=== PATIENT | male | born 1985 | race Caucasian/White ===

== ENCOUNTER 2021-04-13 12:20 | Emergency (ER) | payer SELFPAY ==
[~2021-04-13 12:20] MED LIST: Iopamidol 370 76% 100 ML VIAL ONE
[2021-04-13] MEDS ORDERED: Acetaminophen 500 MG TAB ONE (12:42)
[2021-04-13] MEDS ORDERED: Sodium Chloride 0.9% 1,000 ML ONE ×2 (12:42→13:48)
[2021-04-13] MEDS ORDERED: Ondansetron PF 4 MG/2 ML Vial ONE ×2 (12:42→14:56)
[2021-04-13 13:02] LABS: Hemoglobin 16.6 g/dL (14.0-18.0); Mean Corpuscular HGB CONC 34.4 g/dL (32.0-36.0); Mean Corpuscular Hemoglobin 29.3 pg (27.0-31.0); Mean Corpuscular Volume 85.2 fL (78.0-98.0); Mean Platelet Volume 8.5 fL (7.4-10.4); Platelet Count 150 thou/uL (130-400); Red Blood Cell (RBC) Count 5.66 mill/uL (4.70-6.10); White Blood Cell (WBC) Count 10.9 thou/uL (4.8-10.8)
[2021-04-13 13:11] LABS: ALT (SGPT) 19 U/L (8-55); AST (SGOT) 15 U/L (5-34); Alkaline Phosphatase 56 U/L (40-110); Anion Gap 16 mmol/L (10-20); BUN (Urea Nitrogen) 22 mg/dL (8.9-20.6); Bilirubin, Total 2.5 mg/dL (0.2-1.2); Calc. Creatinine Clearance 0 mL/min (70-130); Calcium 8.7 mg/dL (7.8-10.44); Carbon Dioxide 20 mmol/L (22-29); Chloride 95 mmol/L (98-107); Globulin 3.4 g/dL (2.4-3.5); Glucose 354 mg/dL (70-105); Lipase 5 U/L (8-78); Potassium 3.4 mmol/L (3.5-5.1); Protein, Total 7.4 g/dL (6.0-8.3); Sodium 128 mmol/L (136-145)
[2021-04-13 13:36] LABS: Band 18 % (5-11); Lymphocytes 15 % (21-51); MDiff Complete? YES; Monocytes 9 % (0-10); Neutrophil 58 % (42-75); RBC Morphology Normal
[2021-04-13] MEDS ORDERED: Piperacillin/Tazobactam 4.5 GM VIAL ONE (14:56)
[2021-04-13] MEDS ORDERED: Morphine 4 MG/ML VIAL ONE (14:56)
[2021-04-13] MEDS ORDERED: Sodium Chloride 0.9% 500 ML ONE (14:56)
[2021-04-13 16:21] LABS: SARS-CoV-2 NAA Rapid Test Not Detected (NotDetected)
== END 2021-04-13 16:50 | disposition short-term general hospital (02) ==
LOC: NAV ERS 12:20
DX: K51.00 Ulcerative (chronic) pancolitis without complications (principal); E11.65 Type 2 diabetes mellitus with hyperglycemia; E86.9 Volume depletion, unspecified; Z20.822 Contact with and (suspected) exposure to COVID-19; F17.210 Nicotine dependence, cigarettes, uncomplicated
CPT/HCPCS: 36416; 74177; 80053; 83605; 83690; 85025; 87040; 96365; 96367; 96375; 96376; 36415-59; J2270; J2405; J2543; J3370; J7030; J7050; Q9967; U0002

== ENCOUNTER 2021-10-19 20:30 | Emergency (ER) | payer SELFPAY ==
[2021-10-19 20:52] LABS: #Basophils 0.1 thou/uL (0.0-0.2); #Eosinphils 0.2 thou/uL (0.0-0.7); #Lymphocytes 2.7 thou/uL (1.20-3.40); #Monocytes 0.6 thou/uL (0.11-0.59); #Neutrophils 4.8 thou/uL (1.40-6.50); %Basophils 1.6 % (0.0-1.0); %Eosinophils 2.2 % (0.0-10.0); %Lymphocytes 31.9 % (21.0-51.0); %Monocytes 7.1 % (0.0-10.0); %Neutrophils 57.2 % (42.0-75.0); Hemoglobin 15.4 g/dL (14.0-18.0); Mean Corpuscular HGB CONC 32.7 g/dL (32.0-36.0); Mean Corpuscular Hemoglobin 28.5 pg (27.0-31.0); Mean Corpuscular Volume 87.2 fL (78.0-98.0); Platelet Count 198 thou/uL (130-400); RBC Distribution Width 11.9 % (11.5-14.5); White Blood Cell (WBC) Count 8.3 thou/uL (4.8-10.8)
[2021-10-19 20:58] LABS: Bilirubin Negative (Negative); Blood, Urine Trace (Negative); Clarity Clear (Clear); Glucose, Urine (Dipstick) >=1000 mg/dL (Negative); Ketone, Urine Negative (Negative); Leukocyte Negative (Negative); Nitrite Negative (Negative); Protein, Urine (Dipstick) Negative (Neg-Trace); Urobilinogen 0.2 mg/dL (Less than 2); pH, Urine 5.5 (5.0-9.0)
[2021-10-19 21:05] LABS: RBC/HPF 0-3 HPF (0-3); WBC/HPF None Seen HPF (0-3)
[2021-10-19 21:06] LABS: Squamous Epithelial 0-3 HPF (0-3)
[2021-10-19 21:10] LABS: ALT (SGPT) 28 U/L (8-55); AST (SGOT) 20 U/L (5-34); Albumin 4.4 g/dL (3.5-5.0); Alkaline Phosphatase 108 U/L (40-110); Anion Gap 20 mmol/L (10-20); BUN (Urea Nitrogen) 13 mg/dL (8.9-20.6); Bilirubin, Total 0.9 mg/dL (0.2-1.2); Calc. Creatinine Clearance 0 mL/min (70-130); Calcium 9.6 mg/dL (7.8-10.44); Carbon Dioxide 21 mmol/L (22-29); Chloride 98 mmol/L (98-107); Globulin 3.5 g/dL (2.4-3.5); Glucose 428 mg/dL (70-105); Potassium 3.9 mmol/L (3.5-5.1); Protein, Total 7.9 g/dL (6.0-8.3); Sodium 135 mmol/L (136-145)
[2021-10-19] MEDS ORDERED: Insulin Regular 300 UNITS/3 ML VIAL ONE (21:17)
[2021-10-19] MEDS ORDERED: Ondansetron PF 4 MG/2 ML Vial ONE (21:24)
[2021-10-19] MEDS ORDERED: Morphine 4 MG/ML VIAL ONE (21:24)
[2021-10-19] MEDS ORDERED: Sodium Chloride 0.9% 1,000 ML ONE (21:51)
== END 2021-10-19 22:44 | disposition left against medical advice (07) ==
LOC: NAV ERS 20:30
DX: K85.90 Acute pancreatitis without necrosis or infection, unspecified (principal); E11.65 Type 2 diabetes mellitus with hyperglycemia; F17.210 Nicotine dependence, cigarettes, uncomplicated
CPT/HCPCS: 36416; 74177; 80053; 81003; 81015; 83690; 85025; 94760; 96374; 96375; J1815; J2270; J2405; J7050; Q9967

== ENCOUNTER 2022-03-19 12:48 | Emergency (ER) | payer SELFPAY | END 2022-03-19 13:27 | disposition home or self-care (01) | LOC: NAV ERS 12:48 | DX: L73.1 Pseudofolliculitis barbae (principal); L08.9 Local infection of the skin and subcutaneous tissue, unspecified; E11.9 Type 2 diabetes mellitus without complications; F17.210 Nicotine dependence, cigarettes, uncomplicated; Z79.84 Long term (current) use of oral hypoglycemic drugs; Z79.899 Other long term (current) drug therapy | CPT/HCPCS: 87070; 87077; 87205; 99283 ==

== ENCOUNTER 2024-03-19 19:34 | Emergency (ER) | payer OTHER ==
[2024-03-19] MEDS ORDERED: Ondansetron PF 4 MG/2 ML Vial ONE (19:54)
[2024-03-19] MEDS ORDERED: Sodium Chloride 0.9% 1,000 ML ONE (19:54)
[2024-03-19 20:27] LABS: #Basophils 0.1 thou/uL (0.0-0.2); #Eosinphils 0.2 thou/uL (0.0-0.7); #Lymphocytes 2.4 thou/uL (1.20-3.40); #Monocytes 0.6 thou/uL (0.11-0.59); #Neutrophils 4.2 thou/uL (1.40-6.50); %Basophils 1.9 % (0.0-1.0); %Eosinophils 2.9 % (0.0-10.0); %Lymphocytes 31.3 % (21.0-51.0); %Monocytes 8.4 % (0.0-10.0); %Neutrophils 55.5 % (42.0-75.0); Hemoglobin 15.1 g/dL (14.0-18.0); Mean Corpuscular HGB CONC 34.3 g/dL (32.0-36.0); Mean Corpuscular Hemoglobin 28.8 pg (27.0-31.0); Mean Platelet Volume 8.6 fL (7.4-10.4); Platelet Count 187 10x3/uL (130-400); RBC Distribution Width 11.6 % (11.5-14.5); Red Blood Cell (RBC) Count 5.24 mill/uL (4.70-6.10); White Blood Cell (WBC) Count 7.6 10x3/uL (4.8-10.8)
[2024-03-19 20:42] LABS: ALT (SGPT) 33 U/L (8-55); AST (SGOT) 21 U/L (5-34); Albumin 4.4 g/dL (3.5-5.0); Alkaline Phosphatase 91 U/L (40-110); Anion Gap 19 mmol/L (10-20); BUN (Urea Nitrogen) 11 mg/dL (8.9-20.6); Bilirubin, Total 1.2 mg/dL (0.2-1.2); Calc. Creatinine Clearance 0 mL/min (70-130); Calcium 9.6 mg/dL (7.8-10.44); Carbon Dioxide 21 mmol/L (22-29); Chloride 100 mmol/L (98-107); Estimated GFR 95; Globulin 2.7 g/dL (2.4-3.5); Glucose 259 mg/dL (70-105); Potassium 3.2 mmol/L (3.5-5.1); Protein, Total 7.1 g/dL (6.0-8.3); Sodium 137 mmol/L (136-145)
[2024-03-19 20:43] LABS: Acetaminophen Less than 10 mcg/mL (Less than 10); Alcohol Less than 10.0 mg/dL (Less than 10); Salicylate Less than 8.0 mg/dL (Less than 8.0)
[2024-03-19 20:49] LABS: Troponin I Less than 0.010 ng/mL (< 0.028)
[2024-03-19 21:20] LABS: Bilirubin Negative (Negative); Blood, Urine Trace (Negative); Clarity Clear (Clear); Glucose, Urine (Dipstick) 500 mg/dL (Negative); Ketone, Urine Negative (Negative); Leukocyte Negative (Negative); Nitrite Negative (Negative); Protein, Urine (Dipstick) Negative (Neg-Trace); Urobilinogen 0.2 mg/dL (Less than 2); pH, Urine 5.5 (5.0-9.0)
[2024-03-19 21:29] LABS: CAUTI Indications for Culture Alt mental st,lethar; RBC/HPF 0-3 HPF (0-3); WBC/HPF 0-3 HPF (0-3)
[2024-03-19 21:30] LABS: Urine Culture Reflex No No
[2024-03-19 21:35] LABS: Amphetamine Not Detected (NotDetected); Barbiturates Screen Not Detected (NotDetected); Benzodiazepine Screen Not Detected (NotDetected); Cocaine Metabolite Screen Not Detected (NotDetected); Methadone Not Detected (NotDetected); Methamphetamine Not Detected (NotDetected); Opiate Screen Not Detected (NotDetected); Oxycodone Screen Not Detected (NotDetected); Phencyclidine (PCP) Not Detected (NotDetected); THC/Cannabinoid Screen Detected (NotDetected); Tricyclic Screen Not Detected (NotDetected)
== END 2024-03-19 22:20 | disposition short-term general hospital (02) ==
LOC: NAV ERS 19:34
DX: T38.3X2A Poisoning by insulin and oral hypoglycemic [antidiabetic] drugs, intentional self-harm, initial encounter (principal); R41.82 Altered mental status, unspecified; I10 Essential (primary) hypertension; E11.9 Type 2 diabetes mellitus without complications; F17.210 Nicotine dependence, cigarettes, uncomplicated; Z03.6 Encounter for observation for suspected toxic effect from ingested substance ruled out; Z79.84 Long term (current) use of oral hypoglycemic drugs
CPT/HCPCS: 36416; 71045; 80053; 80306; 80307; 81001; 84484; 85025; 93005; 94760; 96361; 96374; J2405; J7030

== ENCOUNTER 2025-05-12 16:30 | Emergency (ER) | payer OTHER, SELFPAY ==
[2025-05-12 17:33] LABS: #Basophils 0.2 thou/uL (0.0-0.2); #Eosinophils 0.1 thou/uL (0.0-0.7); #Lymphocytes 1.5 thou/uL (1.20-3.40); #Monocytes 0.4 thou/uL (0.11-0.59); #Neutrophils 5.1 thou/uL (1.40-6.50); %Basophils 2.5 % (0.0-1.0); %Eosinophils 1.5 % (0.0-10.0); %Lymphocytes 20.7 % (21.0-51.0); %Monocytes 5.7 % (0.0-10.0); %Neutrophils 69.7 % (42.0-75.0); Hematocrit 48.1 % (42.0-52.0); Hemoglobin 16.5 g/dL (14.0-18.0); Manual Diff?? NO; Mean Corpuscular Hemoglobin 28.3 pg (27.0-31.0); Mean Corpuscular Volume 82.4 fl (78.0-98.0); Platelet Count 222 10x3/uL (130-400); Red Blood Cell (RBC) Count 5.84 mill/uL (4.70-6.10); White Blood Cell (WBC) Count 7.4 10x3/uL (4.8-10.8)
[2025-05-12 17:41] LABS: Troponin I Less than 0.010 ng/mL (< 0.028)
[2025-05-12 17:43] LABS: ALT (SGPT) 22 U/L (Less than 45); AST (SGOT) 20 U/L (11-34); Albumin 4.2 g/dL (3.1-4.5); Alkaline Phosphatase 95 U/L (40-110); Anion Gap 19 mmol/L (10-20); BUN (Urea Nitrogen) 8 mg/dL (8.9-20.6); Bilirubin, Total 0.8 mg/dL (0.3-1.2); Calc. Creatinine Clearance 0 mL/min (70-130); Calcium 9.3 mg/dL (7.8-10.44); Carbon Dioxide 18 mmol/L (22-29); Chloride 102 mmol/L (98-107); Globulin 3.4 g/dL (2.4-3.5); Glucose 249 mg/dL (70-105); Potassium 3.4 mmol/L (3.5-5.1); Sodium 136 mmol/L (136-145)
== END 2025-05-12 18:35 | disposition home or self-care (01) ==
LOC: NAV ERS 16:30
DX: E11.65 Type 2 diabetes mellitus with hyperglycemia (principal); R00.2 Palpitations; E78.5 Hyperlipidemia, unspecified; I10 Essential (primary) hypertension; Z79.899 Other long term (current) drug therapy; Z79.84 Long term (current) use of oral hypoglycemic drugs
CPT/HCPCS: 36416; 80053; 83880; 84443; 84484; 85025; 93005; 99285